=== PATIENT | male | born 1940 | race Caucasian/White ===

== ENCOUNTER 2019-05-27 06:32 | Day surgery (SDC) | payer MEDICARE ==
[~2019-05-27] VITALS: Ht 180.3 cm; Wt 78.0 kg
[2019-05-27 07:10] VITALS: BP 135/70
[2019-05-27] MEDS ORDERED: heparin 1,000 UNITS/NS 500ml 500 ML ICATH ONE (07:10)
[2019-05-27] MEDS ORDERED: normal saline 1000ml 1,000 ML IV PRN (07:10)
[2019-05-27] MEDS ORDERED: LIDOcaine 1%/PF 5ML 10 MG/ML VIAL SQ ONE (07:10)
[2019-05-27] MEDS ORDERED: normal saline 1000ml 1,000 ML IV SCH (07:10)
[2019-05-27] MEDS ORDERED: midazolam 2 mg/2 ml injection IV PRN (07:10)
[2019-05-27] MEDS ORDERED: fentaNYL/PF 50MCG/1 ML 2ML syringe IV PRN (07:10)
[2019-05-27] MEDS ORDERED: SODI650T29 PO (07:37)
[2019-05-27] MEDS ORDERED: ATOR20TA PO (07:37)
[2019-05-27] MEDS ORDERED: APIX5TAB3 PO (07:37)
[2019-05-27] MEDS ORDERED: FOLI0.8T7 PO (07:37)
[2019-05-27] MEDS ORDERED: METO25TA6 PO (07:37)
[2019-05-27] MEDS ORDERED: CALC0.2536 PO (07:37)
[2019-05-27] MEDS ORDERED: PHO667C PO (07:37)
[2019-05-27] MEDS ORDERED: FURO-149 PO (07:37)
[2019-05-27] MEDS ORDERED: AMIO200T61 PO (07:37)
[2019-05-27] MEDS ORDERED: DILT120C94 PO (07:37)
[2019-05-27] MEDS ORDERED: LISI2.5T2 PO (07:37)
[2019-05-27 07:53] LABS: BASOPHILS # (AUTO) 0.2 X10'3 (0-0.2); BASOPHILS % (AUTO) 1.3 % (0-1); EOSINOPHILS # (AUTO) 0.4 X10'3 (0-0.9); EOSINOPHILS % (AUTO) 3.3 % (0-6); HEMATOCRIT 37.4 % (42.0-52.0); HEMOGLOBIN 12.1 g/dl (14.0-17.9); LYMPHOCYTES # (AUTO) 1.8 X10'3 (1.1-4.8); LYMPHOCYTES % (AUTO) 15.4 % (21-51); MEAN CORPUSCULAR HEMOGLOBIN 35.3 PG (27.0-31.0); MEAN CORPUSCULAR HGB CONC 32.3 g/dL (33.0-36.5); MEAN CORPUSCULAR VOLUME 109.3 FL (78-98); MEAN PLATELET VOLUME 7.1 FL (7.4-10.4); NEUTROPHILS # (AUTO) 8.6 X10'3 (1.8-7.7); PLATELET COUNT 230 X10'3 (140-440); RED BLOOD COUNT 3.42 X10'6 (4.70-6.10); RED CELL DISTRIBUTION WIDTH 16.4 % (11.5-14.5); WHITE BLOOD COUNT 11.9 X10'3 (4.5-11.0)
[2019-05-27] MEDS ORDERED: ALB0.5UD IH (08:20)
[2019-05-27] MEDS ORDERED: TIOT18CA3 INH (08:20)
[2019-05-27] MEDS ORDERED: tPA-cathflo 2 MG/2 ml IV flush ONE ×2 (08:46→09:34)
[2019-05-27] MEDS ORDERED: midazolam 2 mg/2 ml injection ONE (08:46)
[2019-05-27] MEDS ORDERED: iohexol 300mg/ml 100ml inj. ONE (08:46)
[2019-05-27] MEDS ORDERED: LIDOcaine 1%/PF 5ML 10 MG/ML VIAL ONE (08:46)
[2019-05-27] MEDS ORDERED: fentaNYL/PF 50MCG/1 ML 2ML syringe ONE (08:46)
[2019-05-27] MEDS ORDERED: heparin 1,000 UNITS/NS 500ml 500 ML ONE (08:47)
[2019-05-27 10:20] VITALS: BP 118/30
[2019-05-27 10:30] VITALS: BP 114/59
[2019-05-27 10:45] VITALS: BP 127/66
[2019-05-27 11:00] VITALS: BP 137/42
[2019-05-27 11:15] VITALS: BP 126/57
== END 2019-05-27 11:45 | disposition home or self-care (01) ==
LOC: SSTAY O 06:32
PROVIDERS: ATTEND Radiology Vascular & Interventional Radiology
DX: T82.868A Thrombosis due to vascular prosthetic devices, implants and grafts, initial encounter (principal); I13.0 Hypertensive heart and chronic kidney disease with heart failure and stage 1 through stage 4 chronic kidney disease, or unspecified chronic kidney disease; N18.9 Chronic kidney disease, unspecified; Z99.2 Dependence on renal dialysis; Z98.890 Other specified postprocedural states; Z79.899 Other long term (current) drug therapy; Z88.0 Allergy status to penicillin; I50.9 Heart failure, unspecified; Y83.2 Surgical operation with anastomosis, bypass or graft as the cause of abnormal reaction of the patient, or of later complication, without mention of misadventure at the time of the procedure; Y92.89 Other specified places as the place of occurrence of the external cause
CPT/HCPCS: 36415; 36905; 85025; 99152; 99153; C1725; C1769; C1894; J1644; J2250; J2997; J3010; J7030; Q9967

== ENCOUNTER 2019-08-26 07:40 | Emergency (ER) | payer MEDICARE, MEDICAID ==
[~2019-08-26] VITALS: Ht 172.7 cm; Wt 79.5 kg
[~2019-08-26 07:40] MED LIST: ALB0.5UD IH; AMIO200T61 PO; APIX5TAB3 PO; ATOR20TA PO; CALC0.2536 PO; DILT120C94 PO; FOLI0.8T7 PO; FURO-149 PO; LISI2.5T2 PO; METO25TA6 PO; PHO667C PO; SODI650T29 PO; TIOT18CA3 INH
--- NOTE | 2019-08-26 09:00 | NUR ---
ATTEMPTED TO TAKE VSS ON PT, PT CURRENTLY HAVING ULTRASOUND AT BEDSIDE.
[2019-08-26] MEDS ORDERED: iohexol 300mg/ml 100ml inj. ONE (09:25)
[2019-08-26] MEDS ORDERED: LIDOcaine 1%/PF 5ML 10 MG/ML VIAL ONE (09:25)
[2019-08-26 10:15] LABS: BASOPHILS # (AUTO) 0.1 X10'3 (0-0.2); BASOPHILS % (AUTO) 0.8 % (0-1); EOSINOPHILS # (AUTO) 0.3 X10'3 (0-0.9); EOSINOPHILS % (AUTO) 1.8 % (0-6); HEMATOCRIT 28.5 % (42.0-52.0); HEMOGLOBIN 9.4 g/dl (14.0-17.9); LYMPHOCYTES # (AUTO) 1.2 X10'3 (1.1-4.8); LYMPHOCYTES % (AUTO) 8.4 % (21-51); MEAN CORPUSCULAR HEMOGLOBIN 35.8 PG (27.0-31.0); MEAN CORPUSCULAR HGB CONC 33.2 g/dL (33.0-36.5); MEAN CORPUSCULAR VOLUME 107.9 FL (78-98); MEAN PLATELET VOLUME 6.5 FL (7.4-10.4); MONOCYTES # (AUTO) 1.2 X10'3 (0-0.9); MONOCYTES % (AUTO) 8.6 % (2-12); NEUTROPHILS # (AUTO) 11.4 X10'3 (1.8-7.7); NEUTROPHILS % (AUTO) 80.4 % (42-75); PLATELET COUNT 296 X10'3 (140-440); RED BLOOD COUNT 2.64 X10'6 (4.70-6.10); RED CELL DISTRIBUTION WIDTH 16.9 % (11.5-14.5); WHITE BLOOD COUNT 14.1 X10'3 (4.5-11.0)
[2019-08-26 10:27] LABS: ALANINE AMINOTRANSFERASE 12 U/L (12-78); ALBUMIN 3.4 G/DL (3.4-5.0); ALKALINE PHOSPHATASE 106 IU/L (46-116); ANION GAP 7 (8-16); ASPARTATE AMINO TRANSFERASE 18 U/L (10-37); BILIRUBIN,TOTAL 0.4 MG/DL (0.1-1.0); BLOOD UREA NITROGEN 27 MG/DL (7-18); BUN/CREATININE RATIO 5.6 (5.4-32.0); CALCIUM 8.8 MG/DL (8.5-10.1); CHLORIDE 99 MMOL/L (99-107); CREATININE 4.79 MG/DL (0.60-1.10); GLUCOSE 84 MG/DL (70-104); POTASSIUM 3.8 MMOL/L (3.5-5.1); SODIUM 140 MMOL/L (135-145); TOTAL CARBON DIOXIDE 34.1 MMOL/L (24-32); TOTAL PROTEIN 6.8 G/DL (6.4-8.2); eGFR 12 ML/MIN
[2019-08-26] MEDS ORDERED: normal saline 1000ml 1,000 ML IV SCH (10:33)
[2019-08-26] MEDS ORDERED: LIDOcaine 1%/PF 5ML 10 MG/ML VIAL SQ ONE (10:35)
[2019-08-26] MEDS ORDERED: fentaNYL/PF 50MCG/1 ML 2ML syringe IV PRN (10:35)
[2019-08-26] MEDS ORDERED: midazolam 2 mg/2 ml injection IV PRN (10:35)
[2019-08-26] MEDS ORDERED: fentaNYL/PF 50MCG/1 ML 2ML syringe ONE ×2 (10:43→10:44)
[2019-08-26] MEDS ORDERED: heparin 1,000 UNITS/NS 500ml 500 ML ONE (10:44)
[2019-08-26] MEDS ORDERED: midazolam 2 mg/2 ml injection ONE (10:44)
--- NOTE | 2019-08-26 11:00 | NUR ---
PT TAKEN TO IR
[2019-08-26 13:36] VITALS: BP 146/75
== END 2019-08-26 13:39 | disposition home or self-care (01) ==
LOC: ER 07:40
DX: S40.022A Contusion of left upper arm, initial encounter (principal); E78.00 Pure hypercholesterolemia, unspecified; I10 Essential (primary) hypertension; J44.9 Chronic obstructive pulmonary disease, unspecified; M19.90 Unspecified osteoarthritis, unspecified site; G89.29 Other chronic pain; Z88.0 Allergy status to penicillin; Z79.899 Other long term (current) drug therapy; Z87.891 Personal history of nicotine dependence; X58.XXXA Exposure to other specified factors, initial encounter; Y93.89 Activity, other specified; Y92.89 Other specified places as the place of occurrence of the external cause; Y99.8 Other external cause status
CPT/HCPCS: 36415; 36902; 80053; 85025; 85610; 93931; 93971; 99285; C1725; C1769; C1894; J1644; J2250; J3010; Q9967

== ENCOUNTER 2020-03-11 10:22 | Day surgery (SDC) | payer MEDICARE, MEDICAID ==
[~2020-03-11] VITALS: Ht 162.6 cm; Wt 81.3 kg
[2020-03-11] MEDS ORDERED: normal saline 1000ml 1,000 ML IV SCH (10:45)
[2020-03-11 11:00] VITALS: BP 120/81
[2020-03-11] MEDS ORDERED: LOSA25TA41 PO (11:02)
[2020-03-11] MEDS ORDERED: OMEP40CA13 PO (11:02)
[2020-03-11] MEDS ORDERED: TERB250T4 PO (11:02)
[2020-03-11] MEDS ORDERED: METO-292 PO (11:02)
[2020-03-11] MEDS ORDERED: heparin 1,000unit/ml 10ml vial 10 ML ONE (13:33)
[2020-03-11] MEDS ORDERED: fentaNYL/PF 50MCG/1 ML 2ML syringe ONE (13:34)
[2020-03-11] MEDS ORDERED: LIDOcaine 1%/PF 5ML 10 MG/ML VIAL ONE (13:34)
[2020-03-11 14:30] VITALS: BP 95/77
[2020-03-11 14:45] VITALS: BP 117/67
[2020-03-11 15:00] VITALS: BP 124/72
== END 2020-03-11 15:20 | disposition home or self-care (01) ==
LOC: SSTAY O 10:22
PROVIDERS: ATTEND Radiology Diagnostic Radiology
DX: T82.868A Thrombosis due to vascular prosthetic devices, implants and grafts, initial encounter (principal); I12.9 Hypertensive chronic kidney disease with stage 1 through stage 4 chronic kidney disease, or unspecified chronic kidney disease; N18.9 Chronic kidney disease, unspecified; J44.9 Chronic obstructive pulmonary disease, unspecified; E78.00 Pure hypercholesterolemia, unspecified; M19.90 Unspecified osteoarthritis, unspecified site; G89.29 Other chronic pain; Z87.01 Personal history of pneumonia (recurrent); Z85.72 Personal history of non-Hodgkin lymphomas; Z98.890 Other specified postprocedural states; Z88.0 Allergy status to penicillin; Z79.899 Other long term (current) drug therapy; Y83.2 Surgical operation with anastomosis, bypass or graft as the cause of abnormal reaction of the patient, or of later complication, without mention of misadventure at the time of the procedure; Y92.89 Other specified places as the place of occurrence of the external cause
CPT/HCPCS: 36558; 76937; 77001; C1750; C1769; C1894; J1644; J3010; A9270

== ENCOUNTER 2020-03-18 08:49 | Day surgery (SDC) | payer MEDICARE, MEDICAID ==
[~2020-03-18] VITALS: Ht 180.3 cm; Wt 81.1 kg
[~2020-03-18 08:49] MED LIST changes: -ALB0.5UD IH; -CALC0.2536 PO; -DILT120C94 PO; -LISI2.5T2 PO; +LOSA25TA41 PO; +METO-292 PO; -METO25TA6 PO; +OMEP40CA13 PO; -SODI650T29 PO; +TERB250T4 PO; -TIOT18CA3 INH
[2020-03-18] MEDS ORDERED: normal saline 1000ml 1,000 ML IV PRN (09:15)
[2020-03-18] MEDS ORDERED: tPA-cathflo 2 MG/2 ml IV flush ONE ×2 (09:27→10:48)
[2020-03-18 09:42] LABS: BASOPHILS # (AUTO) 0.2 X10'3 (0-0.2); BASOPHILS % (AUTO) 1.2 % (0-1); EOSINOPHILS # (AUTO) 0.3 X10'3 (0-0.9); EOSINOPHILS % (AUTO) 1.8 % (0-6); HEMATOCRIT 35.8 % (42.0-52.0); HEMOGLOBIN 11.8 g/dl (14.0-17.9); LYMPHOCYTES # (AUTO) 1.7 X10'3 (1.1-4.8); LYMPHOCYTES % (AUTO) 11.6 % (21-51); MEAN CORPUSCULAR HEMOGLOBIN 35.8 PG (27.0-31.0); MEAN CORPUSCULAR HGB CONC 32.8 g/dL (33.0-36.5); MEAN CORPUSCULAR VOLUME 109.1 FL (78-98); MEAN PLATELET VOLUME 6.6 FL (7.4-10.4); MONOCYTES # (AUTO) 1.3 X10'3 (0-0.9); MONOCYTES % (AUTO) 8.3 % (2-12); NEUTROPHILS # (AUTO) 11.6 X10'3 (1.8-7.7); NEUTROPHILS % (AUTO) 77.1 % (42-75); PLATELET COUNT 268 X10'3 (140-440); RED BLOOD COUNT 3.29 X10'6 (4.70-6.10); RED CELL DISTRIBUTION WIDTH 14.9 % (11.5-14.5); WHITE BLOOD COUNT 15.1 X10'3 (4.5-11.0)
[2020-03-18 09:50] VITALS: BP 119/75
[2020-03-18 09:53] LABS: ANION GAP 15 (8-16); CALCIUM 9.1 MG/DL (8.5-10.1); CHLORIDE 98 MMOL/L (99-107); GLUCOSE 80 MG/DL (70-104); POTASSIUM 4.5 MMOL/L (3.5-5.1); SODIUM 139 MMOL/L (135-145); TOTAL CARBON DIOXIDE 25.7 MMOL/L (24-32)
[2020-03-18 09:55] LABS: PARTIAL THROMBOPLASTIN TIME 31 SECONDS (22-32)
[2020-03-18 10:00] LABS: BLOOD UREA NITROGEN 22 MG/DL (7-18); BUN/CREATININE RATIO 3.5 (5.4-32.0); CREATININE 6.24 MG/DL (0.60-1.10); eGFR 9 ML/MIN
[2020-03-18] MEDS ORDERED: LIDOcaine 1%/PF 5ML 10 MG/ML VIAL ONE (10:01)
[2020-03-18] MEDS ORDERED: fentaNYL/PF 50MCG/1 ML 2ML syringe ONE ×2 (10:01→10:54)
[2020-03-18] MEDS ORDERED: iohexol 300mg/ml 100ml inj. ONE (10:01)
[2020-03-18] MEDS ORDERED: midazolam 2 mg/2 ml injection ONE ×2 (10:01→10:54)
[2020-03-18] MEDS ORDERED: heparin 1,000 UNITS/NS 500ml 500 ML ONE (10:01)
[2020-03-18] MEDS ORDERED: heparin 1,000unit/ml 10ml vial 10 ML ONE (10:45)
[2020-03-18 11:45] VITALS: BP 156/103
[2020-03-18 12:00] VITALS: BP 151/91
[2020-03-18 12:15] VITALS: BP 109/76
[2020-03-18 12:30] VITALS: BP 125/71
== END 2020-03-18 12:55 | disposition home or self-care (01) ==
LOC: SSTAY O 08:49
PROVIDERS: ATTEND Radiology Vascular & Interventional Radiology
DX: T82.868A Thrombosis due to vascular prosthetic devices, implants and grafts, initial encounter (principal); E78.00 Pure hypercholesterolemia, unspecified; I10 Essential (primary) hypertension; J44.9 Chronic obstructive pulmonary disease, unspecified; Z87.01 Personal history of pneumonia (recurrent); M19.90 Unspecified osteoarthritis, unspecified site; G89.29 Other chronic pain; Z85.72 Personal history of non-Hodgkin lymphomas; Z88.0 Allergy status to penicillin; Z79.899 Other long term (current) drug therapy; Z79.01 Long term (current) use of anticoagulants; Y83.2 Surgical operation with anastomosis, bypass or graft as the cause of abnormal reaction of the patient, or of later complication, without mention of misadventure at the time of the procedure; Y92.89 Other specified places as the place of occurrence of the external cause
CPT/HCPCS: 36415; 36905; 76937; 80048; 85025; 85610; 85730; 99152; 99153; C1725; C1769; C1894; J1644; J2250; J2997; J3010; J7030; Q9967

== ENCOUNTER 2021-12-16 07:14 | Inpatient (IN) | payer OTHER, BC, MEDICAID ==
[~2021-12-16] VITALS: Ht 180.3 cm; Wt 81.8 kg
[~2021-12-16 07:14] MED LIST changes: -OMEP40CA13 PO; +OMEP40CA21 PO; -TERB250T4 PO; +TERB250T89 PO
--- NOTE | 2021-12-16 08:28 | NUR ---
Per and pt, he is is on 2L NC 24 hours a day.
--- NOTE | 2021-12-16 08:30 | NUR ---
Dr. Pinon at the bedside to place Tanvir cath. Consent is signed.
[2021-12-16 08:58] LABS: BASOPHILS # (AUTO) 0.1 X10'3 (0-0.2); EOSINOPHILS # (AUTO) 0.4 X10'3 (0-0.9); EOSINOPHILS % (AUTO) 3.3 % (0-6); HEMATOCRIT 33.2 % (42.0-52.0); LYMPHOCYTES # (AUTO) 1.2 X10'3 (1.1-4.8); MEAN CORPUSCULAR HEMOGLOBIN 32.9 PG (27.0-31.0); MEAN CORPUSCULAR VOLUME 99.7 FL (78-98); MEAN PLATELET VOLUME 7.3 FL (7.4-10.4); MONOCYTES # (AUTO) 1.1 X10'3 (0-0.9); MONOCYTES % (AUTO) 9.4 % (2-12); NEUTROPHILS # (AUTO) 8.5 X10'3 (1.8-7.7); NEUTROPHILS % (AUTO) 75.3 % (42-75); PLATELET COUNT 245 X10'3 (140-440); RED BLOOD COUNT 3.33 X10'6 (4.70-6.10); RED CELL DISTRIBUTION WIDTH 14.8 % (11.5-14.5); WHITE BLOOD COUNT 11.3 X10'3 (4.5-11.0)
--- NOTE | 2021-12-16 09:07 | NUR ---
Dr. Pinon is now attempting to insert Tanvir in R groin.
[2021-12-16 09:17] LABS: ALBUMIN/GLOBULIN RATIO 0.8 (1.1-1.5); ALKALINE PHOSPHATASE 137 IU/L (46-116); ANION GAP 20 (8-16); ASPARTATE AMINO TRANSFERASE 8 U/L (10-37); BILIRUBIN,TOTAL 1.7 MG/DL (0.1-1.0); BLOOD UREA NITROGEN 82 MG/DL (7-18); BUN/CREATININE RATIO 6.8 (5.4-32.0); CHLORIDE 97 MMOL/L (99-107); CREATININE 12.12 MG/DL (0.60-1.10); GLUCOSE 95 MG/DL (70-104); SODIUM 139 MMOL/L (135-145); TOTAL CARBON DIOXIDE 21.9 MMOL/L (24-32); TOTAL PROTEIN 6.8 G/DL (6.4-8.2); eGFR 4 ML/MIN
[2021-12-16] MEDS ORDERED: acetaminophen 325mg tablet PO PRN ×2 (09:20)
[2021-12-16] MEDS ORDERED: ondansetron/PF 4mg/2ml inj IV PRN (09:20)
[2021-12-16] MEDS ORDERED: magnesium hydroxide 30ml (MOM) UD suspension PO PRN (09:20)
[2021-12-16] MEDS ORDERED: mag hydrox/Alum hydrox/simeth 30ml oral suspension PO PRN (09:20)
[2021-12-16] MEDS ORDERED: morphine 2 MG/ML inj. syringe IV PRN ×2 (09:20)
[2021-12-16] MEDS ORDERED: HYDROcodone/acetaminophen 5mg/325mg tablet PO PRN (09:20)
[2021-12-16 09:27] LABS: ALANINE AMINOTRANSFERASE 7 U/L (12-78)
[2021-12-16] MEDS ORDERED: albumin (human) 25% 100ml IV 100 ML IV PRN (09:30)
--- NOTE | 2021-12-16 09:30 | NUR ---
Per Dr. Pinon, it is ok for pt to not have a peripheral IV.
--- NOTE | 2021-12-16 09:47 | NUR ---
Елена Ramey cath placed by Dr. Pinon. Area cleaned and sterile dressing was applied.
[2021-12-16] MEDS ORDERED: heparin 1,000 units/ml 10ml inj HE ONE ×2 (10:25)
--- NOTE | 2021-12-16 10:32 | NUR ---
Report given to RAMOS Rizo in PCU.
[2021-12-16 10:45] VITALS: BP 135/63
[2021-12-16 15:00] VITALS: BP 114/59
[2021-12-16 18:00] VITALS: BP 114/59
[2021-12-16] MEDS: docusate sod 100mg capsule PO SCH (19:28)
[2021-12-16 22:00] VITALS: BP 125/62
[2021-12-17 02:00] VITALS: BP 139/68
[2021-12-17 06:00] VITALS: BP 131/80
--- NOTE | 2021-12-17 06:43 | NUR ---
Patient in room PCU 3022. I have received report from Viky BEASLEY and had the opportunity to ask questions and assume patient care.
[2021-12-17 07:00] VITALS: BP 131/80
[2021-12-17] MEDS: docusate sod 100mg capsule PO SCH ×2 (07:41→19:56)
[2021-12-17 07:43] LABS: BASOPHILS # (AUTO) 0.1 X10'3 (0-0.2); BASOPHILS % (AUTO) 0.8 % (0-1); EOSINOPHILS # (AUTO) 0.1 X10'3 (0-0.9); EOSINOPHILS % (AUTO) 1.2 % (0-6); HEMATOCRIT 30.7 % (42.0-52.0); HEMOGLOBIN 10.1 g/dl (14.0-17.9); LYMPHOCYTES # (AUTO) 1.1 X10'3 (1.1-4.8); LYMPHOCYTES % (AUTO) 8.6 % (21-51); MEAN CORPUSCULAR HEMOGLOBIN 32.9 PG (27.0-31.0); MEAN CORPUSCULAR HGB CONC 32.8 g/dL (33.0-36.5); MEAN CORPUSCULAR VOLUME 100.3 FL (78-98); MEAN PLATELET VOLUME 7.5 FL (7.4-10.4); MONOCYTES # (AUTO) 1.2 X10'3 (0-0.9); MONOCYTES % (AUTO) 9.9 % (2-12); NEUTROPHILS # (AUTO) 9.8 X10'3 (1.8-7.7); NEUTROPHILS % (AUTO) 79.5 % (42-75); PLATELET COUNT 226 X10'3 (140-440); RED BLOOD COUNT 3.06 X10'6 (4.70-6.10); RED CELL DISTRIBUTION WIDTH 14.5 % (11.5-14.5); WHITE BLOOD COUNT 12.4 X10'3 (4.5-11.0)
--- NOTE | 2021-12-17 07:50 | NUR ---
Problems reprioritized. Patient report given, questions answered & plan of care reviewed with Lianna BEASLEY.
--- NOTE | 2021-12-17 07:50 | NUR ---
Patient in room PCU 3022. I have received report from Taty BEASLEY and had the opportunity to ask questions and assume patient care.
[2021-12-17 07:52] LABS: ALBUMIN 2.6 G/DL (3.4-5.0); ANION GAP 15 (8-16); BLOOD UREA NITROGEN 43 MG/DL (7-18); BUN/CREATININE RATIO 5.5 (5.4-32.0); CALCIUM 8.9 MG/DL (8.5-10.1); CHLORIDE 101 MMOL/L (99-107); CREATININE 7.81 MG/DL (0.60-1.10); GLUCOSE 95 MG/DL (70-104); POTASSIUM 4.1 MMOL/L (3.5-5.1); SODIUM 139 MMOL/L (135-145); TOTAL CARBON DIOXIDE 23.4 MMOL/L (24-32); eGFR 7 ML/MIN
[2021-12-17] MEDS: guaiFENesin ER 600mg tablet PO SCH ×2 (10:15→19:56)
[2021-12-17 11:00] VITALS: BP 109/58
--- NOTE | 2021-12-17 14:40 | NUR ---
PAGER ID: [phone] MESSAGE: [id number] - Ap [place]: Patients states hes been having a lot of rectal bleeding and she told ER doctor, wants to know if any tests are being run? Also curious about most recent chest x ray. She is in room. [facility] [id number]
--- NOTE | 2021-12-17 14:41 | NUR ---
is in room and states patient has been having large amounts of rectal bleeding onto a pad he wears in his underwear. So much so that it consistently fills the pad and runs onto the patients pants. She said this has been ongoing for awhile and [facility]. She states she mentioned it to the ER doctor yesterday and wanted to know if they were looking into it. I could not find any information on this in the notes or in the patient admit history for this visit. I paged MD with wifes questions in hopes he can answer her questions.
--- NOTE | 2021-12-17 14:49 | NUR ---
Dr Cuellar called back. Stated until he sees blood there isnt anything he can do.
[2021-12-17 15:37] VITALS: BP 112/51
[2021-12-17] MEDS ORDERED: albuterol 2.5 MG/3 ML nebule ONE (15:58)
[2021-12-17] MEDS: albuterol 2.5 MG/3 ML nebule NEB SCH (19:37)
[2021-12-17] MEDS: amiodarone 200mg tablet PO SCH (19:56)
[2021-12-17] MEDS: furosemide 40mg tablet PO SCH (19:56)
[2021-12-18 02:00] VITALS: BP 120/62
[2021-12-18 06:55] LABS: BASOPHILS # (AUTO) 0.1 X10'3 (0-0.2); BASOPHILS % (AUTO) 0.7 % (0-1); EOSINOPHILS # (AUTO) 0.2 X10'3 (0-0.9); EOSINOPHILS % (AUTO) 1.5 % (0-6); HEMATOCRIT 29.8 % (42.0-52.0); LYMPHOCYTES # (AUTO) 1.1 X10'3 (1.1-4.8); LYMPHOCYTES % (AUTO) 10.1 % (21-51); MEAN CORPUSCULAR HEMOGLOBIN 33.1 PG (27.0-31.0); MEAN CORPUSCULAR HGB CONC 33.5 g/dL (33.0-36.5); MEAN PLATELET VOLUME 7.3 FL (7.4-10.4); MONOCYTES # (AUTO) 1.2 X10'3 (0-0.9); MONOCYTES % (AUTO) 10.9 % (2-12); NEUTROPHILS # (AUTO) 8.1 X10'3 (1.8-7.7); NEUTROPHILS % (AUTO) 76.8 % (42-75); PLATELET COUNT 240 X10'3 (140-440); RED BLOOD COUNT 3.01 X10'6 (4.70-6.10); RED CELL DISTRIBUTION WIDTH 14.2 % (11.5-14.5); WHITE BLOOD COUNT 10.5 X10'3 (4.5-11.0)
[2021-12-18 07:00] VITALS: BP 120/62
[2021-12-18 07:04] LABS: ALBUMIN 2.6 G/DL (3.4-5.0); ANION GAP 16 (8-16); BLOOD UREA NITROGEN 59 MG/DL (7-18); BUN/CREATININE RATIO 6.1 (5.4-32.0); CHLORIDE 99 MMOL/L (99-107); CREATININE 9.64 MG/DL (0.60-1.10); GLUCOSE 97 MG/DL (70-104); SODIUM 138 MMOL/L (135-145); TOTAL CARBON DIOXIDE 22.9 MMOL/L (24-32); eGFR 5 ML/MIN
[2021-12-18] MEDS: albuterol 2.5 MG/3 ML nebule NEB SCH ×4 (07:16→19:00)
[2021-12-18] MEDS ORDERED: EPOETIN ALFA-EPBX 20,000 UNIT/ML 1 ML MDV IV ONE (07:20)
[2021-12-18] MEDS ORDERED: albumin (human) 25% 100ml IV 100 ML IV PRN (07:20)
[2021-12-18] MEDS ORDERED: heparin 1,000 units/ml 10ml inj HE ONE ×2 (07:25)
[2021-12-18] MEDS: pantoprazole 40mg Tablet.DR PO SCH ×3 (07:49→09:25)
[2021-12-18] MEDS ORDERED: folic acid/vitamin B complex w/vitamin C 0.8mg tablet PO SCH (08:00)
[2021-12-18] MEDS: amiodarone 200mg tablet PO SCH (08:00)
[2021-12-18] MEDS: furosemide 40mg tablet PO SCH (08:00)
[2021-12-18] MEDS ORDERED: losartan 25mg tablet PO SCH (08:00)
[2021-12-18] MEDS ORDERED: pantoprazole 40mg Tablet.DR PO SCH (08:00)
--- NOTE | 2021-12-18 09:00 | NUR ---
Some morning meds held for Addendum: 12/18/21 at 1116 by Lianna Emanuel RN Dialysis.
[2021-12-18] MEDS: guaiFENesin ER 600mg tablet PO SCH (09:22)
[2021-12-18] MEDS: docusate sod 100mg capsule PO SCH (09:23)
--- NOTE | 2021-12-18 10:02 | NUR ---
ASSISTING RN WITH MED REC, CALLED AND LEFT A MESSAGE FOR OLIMPIA HALL, , TO CONFIRM RUPESH AND PIPER,
[2021-12-18 11:00] VITALS: BP 140/72
[2021-12-18 15:00] VITALS: BP 126/60
[2021-12-18 18:00] VITALS: BP 113/72
--- NOTE | 2021-12-18 18:30 | NUR ---
Patient in room PCU 3022. I have received report from Lianna and had the opportunity to ask questions and assume patient care. Paperwork for discharge was completed by day shift and had been signed by patient. Patient's IV access removed. VS WNL and patient stable, on 2L NC. had portable O2 at bedside. MONICA Cortés wheeled patient down to car via WC on 2L NC. No distress noted.
== END 2021-12-18 19:10 | disposition home or self-care (01) | DRG 314 ==
LOC: ER 07:16 → PCU 3S 09:21
PROVIDERS: ADMIT Internal Medicine; ATTEND Internal Medicine
PROC: 06HY33Z Insertion of Infusion Device into Lower Vein, Percutaneous Approach (ICD-10-PCS; principal; 2021-12-16)
PROC: 5A1D70Z Performance of Urinary Filtration, Intermittent, Less than 6 Hours Per Day (ICD-10-PCS; 2021-12-16)
PROC: 5A1D70Z Performance of Urinary Filtration, Intermittent, Less than 6 Hours Per Day (ICD-10-PCS; 2021-12-18)
DX: T82.510A Breakdown (mechanical) of surgically created arteriovenous fistula, initial encounter (principal); N18.6 End stage renal disease; I13.2 Hypertensive heart and chronic kidney disease with heart failure and with stage 5 chronic kidney disease, or end stage renal disease; J96.11 Chronic respiratory failure with hypoxia; I50.20 Unspecified systolic (congestive) heart failure; J44.9 Chronic obstructive pulmonary disease, unspecified; I48.0 Paroxysmal atrial fibrillation; D64.9 Anemia, unspecified; G89.29 Other chronic pain; M19.90 Unspecified osteoarthritis, unspecified site; M54.9 Dorsalgia, unspecified; E78.00 Pure hypercholesterolemia, unspecified; E78.5 Hyperlipidemia, unspecified; Y71.2 Prosthetic and other implants, materials and accessory cardiovascular devices associated with adverse incidents; Y92.89 Other specified places as the place of occurrence of the external cause; Z79.01 Long term (current) use of anticoagulants; Z85.72 Personal history of non-Hodgkin lymphomas; Z99.2 Dependence on renal dialysis; Z92.21 Personal history of antineoplastic chemotherapy; Z79.899 Other long term (current) drug therapy; Z88.0 Allergy status to penicillin; Z92.3 Personal history of irradiation; Z87.891 Personal history of nicotine dependence
CPT/HCPCS: 36415; 71045; 80048; 80053; 85025; 87081; 87502; 87503; 94640; 94667; 94668; 94760; 99285; G0257; G0378; J1644; Q4081

== ENCOUNTER 2022-01-01 12:17 | Day surgery (SDC) | payer OTHER ==
[~2022-01-01] VITALS: Ht 180.3 cm; Wt 85.2 kg
[~2022-01-01 12:17] MED LIST changes: +ALBU8HFA PO; -APIX5TAB3 PO; -ATOR20TA PO; +FLUT1BLS14; -FOLI0.8T7 PO; +IPRA3AMP31 NEB; +LACTC PO; -METO-292 PO; +METO200T49 PO; -PHO667C PO; -TERB250T89 PO
[2022-01-01 12:30] VITALS: BP 127/74
[2022-01-01] MEDS ORDERED: normal saline 1000ml 1,000 ML IV SCH (12:35)
[2022-01-01 12:37] VITALS: BP 127/74
[2022-01-01] MEDS ORDERED: heparin 1,000unit/ml 10ml vial 10 ML ONE (13:03)
[2022-01-01] MEDS ORDERED: LIDOcaine 1% W/epiNEPHrine 1:100,000 20ml vial ONE (13:03)
[2022-01-01] MEDS ORDERED: midazolam 1 mg/ML 2ml injection ONE (13:03)
[2022-01-01] MEDS ORDERED: fentaNYL/PF 50MCG/1 ML 2ML syringe ONE (13:03)
[2022-01-01 14:21] VITALS: BP 142/66
[2022-01-01 14:30] VITALS: BP 149/59
[2022-01-01 14:45] VITALS: BP 140/81
== END 2022-01-01 15:10 | disposition home or self-care (01) ==
LOC: SSTAY O 12:17
PROVIDERS: ATTEND Preventive Medicine Aerospace Medicine
DX: T82.590A Other mechanical complication of surgically created arteriovenous fistula, initial encounter (principal); I12.0 Hypertensive chronic kidney disease with stage 5 chronic kidney disease or end stage renal disease; N18.6 End stage renal disease; Z88.8 Allergy status to other drugs, medicaments and biological substances; Z88.0 Allergy status to penicillin; Y83.2 Surgical operation with anastomosis, bypass or graft as the cause of abnormal reaction of the patient, or of later complication, without mention of misadventure at the time of the procedure; Y92.89 Other specified places as the place of occurrence of the external cause
CPT/HCPCS: 36558; 76937; 77001; C1750; C1769; C1894; J1644; J3010; J3490; J7030; A4615; A9270; J2250

== ENCOUNTER 2022-02-12 10:13 | Inpatient (IN) | payer OTHER, BC, MEDICAID ==
[~2022-02-12] VITALS: Ht 180.3 cm; Wt 81.0 kg
[2022-02-12 11:13] LABS: BASOPHILS # (AUTO) 0.1 X10'3 (0-0.2); BASOPHILS % (AUTO) 1.1 % (0-1); EOSINOPHILS # (AUTO) 0.3 X10'3 (0-0.9); EOSINOPHILS % (AUTO) 2.6 % (0-6); HEMATOCRIT 36.8 % (42.0-52.0); HEMOGLOBIN 12.1 g/dl (14.0-17.9); LYMPHOCYTES # (AUTO) 0.9 X10'3 (1.1-4.8); LYMPHOCYTES % (AUTO) 6.3 % (21-51); MEAN CORPUSCULAR HGB CONC 32.9 g/dL (33.0-36.5); MEAN CORPUSCULAR VOLUME 103.5 FL (78-98); MEAN PLATELET VOLUME 7.5 FL (7.4-10.4); MONOCYTES # (AUTO) 0.8 X10'3 (0-0.9); NEUTROPHILS # (AUTO) 11.4 X10'3 (1.8-7.7); PLATELET COUNT 182 X10'3 (140-440); RED BLOOD COUNT 3.55 X10'6 (4.70-6.10); RED CELL DISTRIBUTION WIDTH 16.9 % (11.5-14.5); WHITE BLOOD COUNT 13.6 X10'3 (4.5-11.0)
[2022-02-12 11:20] LABS: APTT 28 SECONDS (22-32)
[2022-02-12 11:21] LABS: ALANINE AMINOTRANSFERASE 11 U/L (12-78); ALBUMIN 3.1 G/DL (3.4-5.0); ALBUMIN/GLOBULIN RATIO 0.8 (1.1-1.5); ALKALINE PHOSPHATASE 153 IU/L (46-116); ANION GAP 12 (8-16); ASPARTATE AMINO TRANSFERASE 13 U/L (10-37); BILIRUBIN,TOTAL 0.9 MG/DL (0.1-1.0); BLOOD UREA NITROGEN 37 MG/DL (7-18); BUN/CREATININE RATIO 4.1 (5.4-32.0); CALCIUM 8.7 MG/DL (8.5-10.1); CHLORIDE 100 MMOL/L (99-107); CREATININE 9.12 MG/DL (0.60-1.10); GLUCOSE 99 MG/DL (70-104); POTASSIUM 4.3 MMOL/L (3.5-5.1); SODIUM 141 MMOL/L (135-145); TOTAL CARBON DIOXIDE 28.9 MMOL/L (24-32); TOTAL PROTEIN 6.8 G/DL (6.4-8.2); eGFR 6 ML/MIN
[2022-02-12] MEDS ORDERED: iohexol 350MG/ML 100ml bottle IV ONE (12:59)
[2022-02-12] MEDS ORDERED: acetaminophen 325mg tablet PO PRN (14:35)
[2022-02-12] MEDS ORDERED: mag hydrox/Alum hydrox/simeth 30ml oral suspension PO PRN (14:35)
[2022-02-12] MEDS ORDERED: morphine 2 MG/ML inj. syringe IV PRN ×2 (14:35)
[2022-02-12] MEDS ORDERED: magnesium hydroxide 30ml (MOM) UD suspension PO PRN (14:35)
[2022-02-12] MEDS ORDERED: ondansetron/PF 4mg/2ml inj IV PRN (14:35)
[2022-02-12 15:10] LABS: CHOL/HDL RATIO 2.5 (0.00-4.99); CHOLESTEROL 130 MG/DL (0-200); HDL CHOLESTEROL 51 MG/DL (35-60); LDL CHOLESTEROL 62 MG/DL (50-100); TRIGLYCERIDES 105 MG/DL (20-135)
[2022-02-12] MEDS ORDERED: IPRA3AMP31 IH (15:36)
[2022-02-12] MEDS ORDERED: ACET200V24 NEB (15:36)
[2022-02-12] MEDS ORDERED: BISA-155 PO (15:38)
[2022-02-12] MEDS ORDERED: ALBU8.5H17 INH (15:47)
[2022-02-12] MEDS ORDERED: ipratropium/albuterol 3ml nebule NEB PRN (19:15)
--- NOTE | 2022-02-12 19:28 | NUR ---
Pts sats at 84. Pt placed on a non-rebreather. Paged hospitalist for respiratory tx.
--- NOTE | 2022-02-12 19:44 | NUR ---
Per DR. Amezquita place order for a Bi-pap.
--- NOTE | 2022-02-12 19:50 | NUR ---
Paged Dr. Ledesma to upgrade pt status to TCU.
--- NOTE | 2022-02-12 19:54 | NUR ---
Pt placed on bipap at 1953.
[2022-02-12 20:29] LABS: ABG BASE EXCESS 0.3 mmol/L (-2.0-2.0); ABG HCO3 27.4 mmol/L (22.0-26.0); ABG OXYGEN SATURATION 93.2 % (94-97); ABG PCO2 (T) 53.6 mmHg (35.0-48.0); ALLEN'S TEST Modified; FCOHb 0.7 % (0.0-3.9); FMetHb 0.2 % (0.0-1.5); FO2Hb 92.4 % (94-97); PATIENT TEMPERATURE 36.5; RESPIRATORY RATE 10 b/min; TOTAL HEMOGLOBIN 13.3 G/dl (14.0-18.0)
[2022-02-13] VITALS (7 sets, daily range): BP systolic 86–127; BP diastolic 45–63
--- NOTE | 2022-02-13 00:37 | NUR ---
Report called to Syl at [phone] [facility].
[2022-02-13] MEDS: docusate sod 100mg capsule PO SCH ×3 (01:30→20:44)
[2022-02-13] MEDS ORDERED: heparin 1,000unit/ml 10ml vial 10 ML IV ONE (04:15)
[2022-02-13] MEDS ORDERED: heparin 1,000 units/ml 10ml inj IV ONE (04:15)
[2022-02-13] MEDS ORDERED: albumin (human) 25% 100ml IV 100 ML IV PRN (04:15)
[2022-02-13] MEDS ORDERED: heparin 1,000 units/ml 10ml inj HE ONE ×2 (04:20)
[2022-02-13 06:12] LABS: BASOPHILS # (AUTO) 0.1 X10'3 (0-0.2); BASOPHILS % (AUTO) 0.2 % (0-1); EOSINOPHILS % (AUTO) 0 % (0-6); HEMATOCRIT 36.7 % (42.0-52.0); HEMOGLOBIN 11.6 g/dl (14.0-17.9); LYMPHOCYTES # (AUTO) 0.5 X10'3 (1.1-4.8); LYMPHOCYTES % (AUTO) 2.2 % (21-51); MEAN CORPUSCULAR HEMOGLOBIN 33.8 PG (27.0-31.0); MEAN CORPUSCULAR HGB CONC 31.7 g/dL (33.0-36.5); MEAN CORPUSCULAR VOLUME 106.6 FL (78-98); MEAN PLATELET VOLUME 7.4 FL (7.4-10.4); MONOCYTES # (AUTO) 1.3 X10'3 (0-0.9); MONOCYTES % (AUTO) 5.6 % (2-12); PLATELET COUNT 161 X10'3 (140-440); RED BLOOD COUNT 3.44 X10'6 (4.70-6.10); RED CELL DISTRIBUTION WIDTH 17.4 % (11.5-14.5); WHITE BLOOD COUNT 23.9 X10'3 (4.5-11.0)
[2022-02-13 06:27] LABS: ALBUMIN 2.8 G/DL (3.4-5.0); ANION GAP 17 (8-16); BLOOD UREA NITROGEN 49 MG/DL (7-18); BUN/CREATININE RATIO 4.6 (5.4-32.0); CALCIUM 8.5 MG/DL (8.5-10.1); CHLORIDE 97 MMOL/L (99-107); CREATININE 10.55 MG/DL (0.60-1.10); GLUCOSE 109 MG/DL (70-104); POTASSIUM 4.6 MMOL/L (3.5-5.1); SODIUM 137 MMOL/L (135-145); TOTAL CARBON DIOXIDE 23.2 MMOL/L (24-32); eGFR 5 ML/MIN
[2022-02-13] MEDS ORDERED: vancomycin/NS 1 GM ADD-VANTAGE 250 ML X 1 DOSE IV ONE (06:30)
--- NOTE | 2022-02-13 06:49 | NUR ---
Patient in room PCU 3015. I have received report from RAMOS Streeter and had the opportunity to ask questions and assume patient care.
[2022-02-13] MEDS: aspirin 325mg tablet, delayed-release (Ecotrin) PO SCH (07:17)
--- NOTE | 2022-02-13 08:04 | NUR ---
Dr. Cuellar in to see patient and aware patient's BP is 95/50 HR 87. No new orders. Patient also currently on 10LNC. Addendum: 02/13/22 at 0837 by Pete Marrero RN Patient on 10L high flow NC.
[2022-02-13] MEDS ORDERED: VANCOMYCIN 750MG IV in NS 250 ML IV ONE (08:40)
[2022-02-13] MEDS ORDERED: vancomycin/NS 1 GM ADD-VANTAGE 250 ML IV PRN (08:55)
[2022-02-13] MEDS: levoFLOXACIN-Levaquin 250mg/D5 50 ML IV SCH (09:49)
--- NOTE | 2022-02-13 10:59 | NUR ---
Awaiting for 750mg Vanco however patient now getting dialysis. Spoke to [facility] Pharmacists and ok to hang 750mg dose of vanco after dialysis completed.
--- NOTE | 2022-02-13 11:36 | NUR ---
PAGER ID: [phone] MESSAGE: [id number]- Jose Thorpe- unable to do MRI today per geological technician patient on too much O2. Pt will need to be on lower rate and able to lay down flat. Thank you- Pete [phone]
--- NOTE | 2022-02-13 15:31 | NUR ---
Patient BP has been low in the high 80's and low 90's. Per campaign assistant Sara patient Dr Pinon aware and pt was given albumin. No new orders. Addendum: 02/13/22 at 1535 by Pete Marrero RN Patient was also given 1100ml for dialysis and Dr. Pinon did not want further fluids at this time per Pricila christiansen RN. Will continue to monitor.
--- NOTE | 2022-02-13 15:43 | NUR ---
PAGER ID: [phone] MESSAGE: [id number]- Jose Thorpe- pt bp is 86/41 hr 80. universal branch consultant gave patient albumin and 1100ml for dialysis. Pt sounding wet. Dr Pinon did not want more fluids given.- [facility] [id number]
[2022-02-13] MEDS: aztreonam inj. 1,000 MG in normal saline 100ml IV soln 100 ML IV SCH (17:00)
--- NOTE | 2022-02-13 18:30 | NUR ---
Patient in room PCU 3015. I have received report from Pete BEASLEY and had the opportunity to ask questions and assume patient care.
--- NOTE | 2022-02-13 18:40 | NUR ---
Problems reprioritized. Patient report given, questions answered & plan of care reviewed with RAMOS Montoya.
[2022-02-13] MEDS: ipratropium/albuterol 3ml nebule IH SCH (20:14)
[2022-02-14 02:00] VITALS: BP 102/52
[2022-02-14] MEDS: VANCOMYCIN LEVEL IV SCH (03:00)
[2022-02-14 03:31] LABS: BASOPHILS # (AUTO) 0.1 X10'3 (0-0.2); BASOPHILS % (AUTO) 0.5 % (0-1); EOSINOPHILS # (AUTO) 0.6 X10'3 (0-0.9); EOSINOPHILS % (AUTO) 3.9 % (0-6); HEMATOCRIT 28.7 % (42.0-52.0); HEMOGLOBIN 9.5 g/dl (14.0-17.9); LYMPHOCYTES # (AUTO) 1.1 X10'3 (1.1-4.8); LYMPHOCYTES % (AUTO) 6.7 % (21-51); MEAN CORPUSCULAR HGB CONC 32.9 g/dL (33.0-36.5); MEAN CORPUSCULAR VOLUME 103.4 FL (78-98); MEAN PLATELET VOLUME 7.4 FL (7.4-10.4); MONOCYTES # (AUTO) 1.1 X10'3 (0-0.9); MONOCYTES % (AUTO) 6.9 % (2-12); NEUTROPHILS # (AUTO) 12.9 X10'3 (1.8-7.7); PLATELET COUNT 140 X10'3 (140-440); RED BLOOD COUNT 2.78 X10'6 (4.70-6.10); RED CELL DISTRIBUTION WIDTH 16.4 % (11.5-14.5); WHITE BLOOD COUNT 15.7 X10'3 (4.5-11.0)
[2022-02-14 03:47] LABS: ALBUMIN 2.6 G/DL (3.4-5.0); ANION GAP 9 (8-16); BLOOD UREA NITROGEN 25 MG/DL (7-18); BUN/CREATININE RATIO 4.1 (5.4-32.0); CALCIUM 8.4 MG/DL (8.5-10.1); CHLORIDE 101 MMOL/L (99-107); CREATININE 6.06 MG/DL (0.60-1.10); GLUCOSE 91 MG/DL (70-104); POTASSIUM 4.1 MMOL/L (3.5-5.1); SODIUM 138 MMOL/L (135-145); TOTAL CARBON DIOXIDE 28.2 MMOL/L (24-32); VANCOMYCIN,RANDOM 18.7 UG/ML; eGFR 9 ML/MIN
[2022-02-14] MEDS: HYDROcodone/acetaminophen 5mg/325mg tablet PO PRN ×2 (04:30→23:17)
--- NOTE | 2022-02-14 06:30 | NUR ---
Problems reprioritized. Patient report given, questions answered & plan of care reviewed with Pete BEASLEY.
--- NOTE | 2022-02-14 06:34 | NUR ---
Patient in room PCU 3015. I have received report from RAMOS Montoya and had the opportunity to ask questions and assume patient care.
[2022-02-14 06:52] VITALS: BP 110/57
[2022-02-14] MEDS ORDERED: lactobacillus acidophilus cap PO SCH (08:00)
--- NOTE | 2022-02-14 08:15 | NUR ---
Dr. Cuellar in to see patient and aware patient with moist cough and gurgling. Per Dr. Cuellar this is not abnormal for patient and "he does sound wet from time time this is usual for him." Will continue to monitor.
[2022-02-14] MEDS: aspirin 325mg tablet, delayed-release (Ecotrin) PO SCH (08:59)
[2022-02-14] MEDS: pantoprazole 40mg Tablet.DR PO SCH (08:59)
[2022-02-14] MEDS: amiodarone 200mg tablet PO SCH (08:59)
[2022-02-14] MEDS: aztreonam inj. 1,000 MG in normal saline 100ml IV soln 100 ML IV SCH (08:59)
[2022-02-14] MEDS: docusate sod 100mg capsule PO SCH ×2 (08:59→20:37)
--- NOTE | 2022-02-14 09:26 | NUR ---
Patient IV infiltrated. PICC RN requested to assist in placing a new PIV.
--- NOTE | 2022-02-14 10:05 | NUR ---
Per Dr. Zi sahni to use forearm for PIV if unable to insert below wrist. PICC RN aware. PICC RN able to place PIV in left hand. IV abx continued.
[2022-02-14] MEDS: levoFLOXACIN-Levaquin 250mg/D5 50 ML IV SCH (10:45)
[2022-02-14 12:52] VITALS: BP 102/62
[2022-02-14 15:59] VITALS: BP 123/62
[2022-02-14] MEDS ORDERED: levoFLOXACIN-Levaquin 250mg/D5 50 ML IV SCH ×4 (18:08→18:34)
--- NOTE | 2022-02-14 18:46 | NUR ---
Problems reprioritized. Patient report given, questions answered & plan of care reviewed with RAMOS Umana.
[2022-02-14 19:15] VITALS: BP 104/56
[2022-02-14] MEDS: ipratropium/albuterol 3ml nebule IH SCH (19:48)
[2022-02-14 22:00] VITALS: BP_SYST 103; BP_SYST 113; BP_DIAS 54; BP_DIAS 73
[2022-02-15] VITALS (7 sets, daily range): BP systolic 96–134; BP diastolic 54–71
[2022-02-15] MEDS: VANCOMYCIN LEVEL IV SCH (03:00)
--- NOTE | 2022-02-15 05:37 | NUR ---
PT HAS NOT BEEN OOB AND HAS NOT RECEIVED PT THE LAST COUPLE OF DAYS
--- NOTE | 2022-02-15 06:38 | NUR ---
Problems reprioritized. Patient report given, questions answered & plan of care reviewed with CATHY. Addendum: 02/15/22 at 0639 by Raheem Louise RN Amended: Links added.
--- NOTE | 2022-02-15 06:42 | NUR ---
Patient in room PCU 3015. I have received report from RAMOS Umana and had the opportunity to ask questions and assume patient care.
[2022-02-15 07:18] LABS: BASOPHILS % (AUTO) 0.4 % (0-1); EOSINOPHILS # (AUTO) 0.5 X10'3 (0-0.9); EOSINOPHILS % (AUTO) 4.9 % (0-6); HEMATOCRIT 30.3 % (42.0-52.0); HEMOGLOBIN 10.1 g/dl (14.0-17.9); LYMPHOCYTES # (AUTO) 1.1 X10'3 (1.1-4.8); LYMPHOCYTES % (AUTO) 9.9 % (21-51); MEAN CORPUSCULAR HEMOGLOBIN 34.3 PG (27.0-31.0); MEAN CORPUSCULAR HGB CONC 33.3 g/dL (33.0-36.5); MEAN CORPUSCULAR VOLUME 103.1 FL (78-98); MEAN PLATELET VOLUME 7.4 FL (7.4-10.4); MONOCYTES % (AUTO) 9.7 % (2-12); NEUTROPHILS # (AUTO) 8.1 X10'3 (1.8-7.7); NEUTROPHILS % (AUTO) 75.1 % (42-75); PLATELET COUNT 154 X10'3 (140-440); RED BLOOD COUNT 2.94 X10'6 (4.70-6.10); WHITE BLOOD COUNT 10.7 X10'3 (4.5-11.0)
[2022-02-15] MEDS: amiodarone 200mg tablet PO SCH (07:32)
[2022-02-15] MEDS: aztreonam inj. 1,000 MG in normal saline 100ml IV soln 100 ML IV SCH (07:32)
[2022-02-15] MEDS: aspirin 325mg tablet, delayed-release (Ecotrin) PO SCH (07:32)
[2022-02-15] MEDS: docusate sod 100mg capsule PO SCH ×2 (07:32→19:47)
[2022-02-15] MEDS: pantoprazole 40mg Tablet.DR PO SCH (07:32)
[2022-02-15] MEDS: lactobacillus rhamnosus 10,000 MMU CELLS/CAPSULE PO SCH (07:32)
[2022-02-15] MEDS: ipratropium/albuterol 3ml nebule IH SCH ×4 (07:41→20:16)
[2022-02-15 07:58] LABS: ALBUMIN 2.7 G/DL (3.4-5.0); ANION GAP 15 (8-16); BLOOD UREA NITROGEN 38 MG/DL (7-18); BUN/CREATININE RATIO 4.5 (5.4-32.0); CALCIUM 8.7 MG/DL (8.5-10.1); CHLORIDE 100 MMOL/L (99-107); CREATININE 8.38 MG/DL (0.60-1.10); GLUCOSE 86 MG/DL (70-104); POTASSIUM 4.4 MMOL/L (3.5-5.1); SODIUM 141 MMOL/L (135-145); TOTAL CARBON DIOXIDE 25.8 MMOL/L (24-32); VANCOMYCIN,RANDOM 15.1 UG/ML; eGFR 6 ML/MIN
[2022-02-15] MEDS ORDERED: heparin 1,000unit/ml 10ml vial 10 ML IV ONE (08:00)
[2022-02-15] MEDS ORDERED: albumin (human) 25% 100ml IV 100 ML IV PRN (08:00)
[2022-02-15] MEDS ORDERED: heparin 1,000 units/ml 10ml inj HE ONE ×2 (08:00)
[2022-02-15] MEDS ORDERED: EPOETIN ALFA-EPBX 20,000 UNIT/ML 1 ML MDV IV ONE (08:00)
[2022-02-15] MEDS ORDERED: heparin 1,000 units/ml 10ml inj IV ONE (08:00)
--- NOTE | 2022-02-15 09:18 | NUR ---
Pt asking for deep suctioning. RT Stephanie refuses to. Dr. Cuellar aware. Patient has Oropharynx suction at beside and able to use. Will continue monitor.
--- NOTE | 2022-02-15 11:14 | NUR ---
RT in to see patient and NT suction. Rosio cook boat at bedside.
[2022-02-15] MEDS: heparin, porcine 5000 units/ml vial SQ SCH (16:35)
[2022-02-15] MEDS ORDERED: ondansetron 4mg rapidly disintigrating tab PO PRN (17:40)
--- NOTE | 2022-02-15 18:29 | NUR ---
Problems reprioritized. Patient report given, questions answered & plan of care reviewed with RAMOS odell.
--- NOTE | 2022-02-15 18:46 | NUR ---
Patient in room PCU 3015. I have received report from RAMOS Freeman and had the opportunity to ask questions and assume patient care.
[2022-02-15] MEDS: bisacodyl 5mg tablet.DR PO PRN (19:47)
[2022-02-15] MEDS: HYDROcodone/acetaminophen 5mg/325mg tablet PO PRN (21:27)
[2022-02-16] VITALS (8 sets, daily range): BP systolic 112–134; BP diastolic 56–77
[2022-02-16] MEDS: heparin, porcine 5000 units/ml vial SQ SCH ×3 (00:25→15:34)
[2022-02-16] MEDS: VANCOMYCIN LEVEL IV SCH ×2 (03:00→03:59)
[2022-02-16] MEDS: acetaminophen 325mg tablet PO PRN (03:55)
--- NOTE | 2022-02-16 06:10 | NUR ---
Patient in room PCU 3015. I have received report from RAMOS Dunham and had the opportunity to ask questions and assume patient care.
[2022-02-16 06:49] LABS: BASOPHILS # (AUTO) 0.1 X10'3 (0-0.2); BASOPHILS % (AUTO) 1.2 % (0-1); EOSINOPHILS # (AUTO) 0.3 X10'3 (0-0.9); EOSINOPHILS % (AUTO) 3.6 % (0-6); HEMOGLOBIN 9.3 g/dl (14.0-17.9); LYMPHOCYTES # (AUTO) 0.9 X10'3 (1.1-4.8); LYMPHOCYTES % (AUTO) 11.2 % (21-51); MEAN CORPUSCULAR HEMOGLOBIN 34.2 PG (27.0-31.0); MEAN CORPUSCULAR HGB CONC 33.1 g/dL (33.0-36.5); MEAN CORPUSCULAR VOLUME 103.2 FL (78-98); MEAN PLATELET VOLUME 7.3 FL (7.4-10.4); MONOCYTES # (AUTO) 0.8 X10'3 (0-0.9); MONOCYTES % (AUTO) 9.2 % (2-12); NEUTROPHILS # (AUTO) 6.2 X10'3 (1.8-7.7); NEUTROPHILS % (AUTO) 74.8 % (42-75); PLATELET COUNT 159 X10'3 (140-440); RED BLOOD COUNT 2.72 X10'6 (4.70-6.10); RED CELL DISTRIBUTION WIDTH 15.7 % (11.5-14.5); WHITE BLOOD COUNT 8.3 X10'3 (4.5-11.0)
--- NOTE | 2022-02-16 07:12 | NUR ---
Problems reprioritized. Patient report given, questions answered & plan of care reviewed with RAMOS Huff.
[2022-02-16 07:33] LABS: ALBUMIN 2.9 G/DL (3.4-5.0); ANION GAP 12 (8-16); BLOOD UREA NITROGEN 27 MG/DL (7-18); BUN/CREATININE RATIO 4.3 (5.4-32.0); CALCIUM 8.8 MG/DL (8.5-10.1); CHLORIDE 102 MMOL/L (99-107); CREATININE 6.25 MG/DL (0.60-1.10); GLUCOSE 86 MG/DL (70-104); POTASSIUM 4.2 MMOL/L (3.5-5.1); SODIUM 141 MMOL/L (135-145); TOTAL CARBON DIOXIDE 27.5 MMOL/L (24-32); eGFR 9 ML/MIN
[2022-02-16] MEDS: ipratropium/albuterol 3ml nebule IH SCH ×4 (08:13→20:31)
--- NOTE | 2022-02-16 09:40 | NUR ---
Initial: Pt admit to r/o CVA s/p syncopal episode. 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 Pt s/p BSS with ST recs mechanical soft grind all food with thin liquids. Overall pt eating well with average 88% PO intake, meeting 89% estimated energy needs though only 56% estimated protein needs. Recommend Ensure High Protein BID to further assist with meeting estimated nutrient needs. ONS to be sent pending physician approval in EMR. LBM 02/13, documented as a smear. Pt receiving routine bowel care and received first admin of PRN Dulcolax 02/15. Will continue to follow and monitor need for further nutrition intervention. Recommendations: 1) Continue MM5 renal diet with thin liquids, 1.0 L fluid restriction per physician 2) Ensure High Protein BIDBD, pending physician approval in EMR 3) Routine bowel care; utilize PRN bowel care 4) Scaled weight this admit; subsequent scaled weights with dialysis Addendum: 02/16/22 at [address] Amended: Links added.
[2022-02-16] MEDS: lactobacillus rhamnosus 10,000 MMU CELLS/CAPSULE PO SCH (09:57)
[2022-02-16] MEDS: docusate sod 100mg capsule PO SCH ×2 (09:57→20:37)
[2022-02-16] MEDS: aztreonam inj. 1,000 MG in normal saline 100ml IV soln 100 ML IV SCH (09:57)
[2022-02-16] MEDS: pantoprazole 40mg Tablet.DR PO SCH (09:57)
[2022-02-16] MEDS: amiodarone 200mg tablet PO SCH (09:57)
[2022-02-16] MEDS: aspirin 325mg tablet, delayed-release (Ecotrin) PO SCH (09:57)
[2022-02-16] MEDS: HYDROcodone/acetaminophen 5mg/325mg tablet PO PRN (09:59)
[2022-02-16] MEDS ORDERED: vancomycin/NS 1 GM ADD-VANTAGE 250 ML X 1 DOSE IV ONE (11:00)
[2022-02-16] MEDS: levoFLOXACIN-Levaquin 250mg/D5 50 ML IV SCH (11:08)
[2022-02-16] MEDS: lactose-reduced food (Ensure High Protein) 237ml bottle PO SCH (17:30)
--- NOTE | 2022-02-16 18:10 | NUR ---
Problems reprioritized. Patient report given, questions answered & plan of care reviewed with RAMOS Dunham.
--- NOTE | 2022-02-16 18:30 | NUR ---
Patient in room PCU 3015. I have received report from RAMOS Huff and had the opportunity to ask questions and assume patient care.
--- NOTE | 2022-02-16 20:58 | NUR ---
unable to do orthostatic BP due to pt up with PT only
[2022-02-17] MEDS: heparin, porcine 5000 units/ml vial SQ SCH ×4 (00:46→23:44)
[2022-02-17 02:00] VITALS: BP 129/73
[2022-02-17] MEDS: VANCOMYCIN LEVEL IV SCH (03:00)
[2022-02-17] MEDS: acetaminophen 325mg tablet PO PRN ×2 (04:26→18:31)
--- NOTE | 2022-02-17 06:19 | NUR ---
Problems reprioritized. Patient report given, questions answered & plan of care reviewed with RAMOS Huff.
--- NOTE | 2022-02-17 06:20 | NUR ---
Patient in room PCU 3015. I have received report from RAMOS Dunham and had the opportunity to ask questions and assume patient care.
[2022-02-17 06:43] LABS: BASOPHILS # (AUTO) 0.1 X10'3 (0-0.2); BASOPHILS % (AUTO) 0.7 % (0-1); EOSINOPHILS # (AUTO) 0.5 X10'3 (0-0.9); HEMATOCRIT 29.3 % (42.0-52.0); HEMOGLOBIN 9.6 g/dl (14.0-17.9); LYMPHOCYTES # (AUTO) 0.9 X10'3 (1.1-4.8); LYMPHOCYTES % (AUTO) 9.4 % (21-51); MEAN CORPUSCULAR HEMOGLOBIN 33.9 PG (27.0-31.0); MEAN CORPUSCULAR HGB CONC 32.8 g/dL (33.0-36.5); MEAN CORPUSCULAR VOLUME 103.3 FL (78-98); MEAN PLATELET VOLUME 7.4 FL (7.4-10.4); MONOCYTES % (AUTO) 10.7 % (2-12); NEUTROPHILS % (AUTO) 74.2 % (42-75); PLATELET COUNT 193 X10'3 (140-440); RED BLOOD COUNT 2.83 X10'6 (4.70-6.10); RED CELL DISTRIBUTION WIDTH 15.5 % (11.5-14.5); WHITE BLOOD COUNT 9.4 X10'3 (4.5-11.0)
[2022-02-17 06:53] LABS: ALBUMIN 2.7 G/DL (3.4-5.0); ANION GAP 12 (8-16); BLOOD UREA NITROGEN 42 MG/DL (7-18); BUN/CREATININE RATIO 4.9 (5.4-32.0); CALCIUM 8.9 MG/DL (8.5-10.1); CHLORIDE 102 MMOL/L (99-107); CREATININE 8.64 MG/DL (0.60-1.10); GLUCOSE 92 MG/DL (70-104); POTASSIUM 4.6 MMOL/L (3.5-5.1); SODIUM 141 MMOL/L (135-145); TOTAL CARBON DIOXIDE 27.1 MMOL/L (24-32); VANCOMYCIN,RANDOM 21.7 UG/ML; eGFR 6 ML/MIN
[2022-02-17] MEDS: ipratropium/albuterol 3ml nebule IH SCH ×4 (07:29→19:50)
[2022-02-17] MEDS: lactose-reduced food (Ensure High Protein) 237ml bottle PO SCH ×2 (07:30→17:30)
[2022-02-17] MEDS ORDERED: heparin 1,000 units/ml 10ml inj IV ONE ×2 (09:40→12:10)
[2022-02-17] MEDS ORDERED: albumin (human) 25% 100ml IV 100 ML IV PRN ×2 (09:40→12:10)
[2022-02-17] MEDS ORDERED: heparin 1,000unit/ml 10ml vial 10 ML IV ONE ×2 (09:40→12:10)
[2022-02-17] MEDS ORDERED: EPOETIN ALFA-EPBX 20,000 UNIT/ML 1 ML MDV IV ONE ×2 (09:40→12:10)
[2022-02-17] MEDS ORDERED: heparin 1,000 units/ml 10ml inj HE ONE ×4 (09:45→12:15)
[2022-02-17 10:00] VITALS: BP 118/78
[2022-02-17] MEDS ORDERED: bisacodyl 10mg suppository rectal RC PRN (10:50)
[2022-02-17] MEDS: aztreonam inj. 1,000 MG in normal saline 100ml IV soln 100 ML IV SCH (11:01)
[2022-02-17] MEDS: pantoprazole 40mg Tablet.DR PO SCH (11:01)
[2022-02-17] MEDS: lactobacillus rhamnosus 10,000 MMU CELLS/CAPSULE PO SCH (11:01)
[2022-02-17] MEDS: docusate sod 100mg capsule PO SCH ×2 (11:01→20:50)
[2022-02-17] MEDS: amiodarone 200mg tablet PO SCH (11:01)
[2022-02-17] MEDS: aspirin 325mg tablet, delayed-release (Ecotrin) PO SCH (11:02)
[2022-02-17 14:00] VITALS: BP 95/63
[2022-02-17] MEDS ORDERED: albumin (human) 25% 100 ML IV solution IV ONE ×2 (15:25)
[2022-02-17 18:00] VITALS: BP 119/71
--- NOTE | 2022-02-17 18:50 | NUR ---
Problems reprioritized. Patient report given, questions answered & plan of care reviewed with RAMOS Dunham.
--- NOTE | 2022-02-17 19:05 | NUR ---
Patient in room PCU 3015. I have received report from RAMOS Huff and had the opportunity to ask questions and assume patient care.
[2022-02-17] MEDS: bisacodyl 5mg tablet.DR PO PRN (20:50)
[2022-02-17 22:00] VITALS: BP 119/55
[2022-02-18 02:00] VITALS: BP 124/51
[2022-02-18] MEDS: acetaminophen 325mg tablet PO PRN (02:00)
[2022-02-18] MEDS: VANCOMYCIN LEVEL IV SCH (03:00)
[2022-02-18 06:00] VITALS: BP 111/65
--- NOTE | 2022-02-18 06:30 | NUR ---
Patient in room PCU 3015. I have received report from RAMOS Dunham and had the opportunity to ask questions and assume patient care.
--- NOTE | 2022-02-18 06:52 | NUR ---
Problems reprioritized. Patient report given, questions answered & plan of care reviewed with RAMOS Huff.
[2022-02-18] MEDS: lactose-reduced food (Ensure High Protein) 237ml bottle PO SCH ×2 (07:30→17:30)
[2022-02-18 08:10] LABS: ALBUMIN 3.5 G/DL (3.4-5.0); ANION GAP 12 (8-16); BLOOD UREA NITROGEN 27 MG/DL (7-18); BUN/CREATININE RATIO 4.9 (5.4-32.0); CALCIUM 9.2 MG/DL (8.5-10.1); CHLORIDE 102 MMOL/L (99-107); CREATININE 5.48 MG/DL (0.60-1.10); GLUCOSE 91 MG/DL (70-104); POTASSIUM 4.3 MMOL/L (3.5-5.1); SODIUM 141 MMOL/L (135-145); TOTAL CARBON DIOXIDE 27.1 MMOL/L (24-32); eGFR 10 ML/MIN
[2022-02-18 08:33] LABS: BASOPHILS # (AUTO) 0.1 X10'3 (0-0.2); BASOPHILS % (AUTO) 0.7 % (0-1); EOSINOPHILS # (AUTO) 0.3 X10'3 (0-0.9); EOSINOPHILS % (AUTO) 3.4 % (0-6); HEMATOCRIT 27.7 % (42.0-52.0); HEMOGLOBIN 9.2 g/dl (14.0-17.9); LYMPHOCYTES # (AUTO) 0.8 X10'3 (1.1-4.8); LYMPHOCYTES % (AUTO) 9.7 % (21-51); MEAN CORPUSCULAR HEMOGLOBIN 34.3 PG (27.0-31.0); MEAN CORPUSCULAR HGB CONC 33.1 g/dL (33.0-36.5); MEAN CORPUSCULAR VOLUME 103.7 FL (78-98); MEAN PLATELET VOLUME 7.3 FL (7.4-10.4); MONOCYTES % (AUTO) 11.6 % (2-12); NEUTROPHILS # (AUTO) 6.3 X10'3 (1.8-7.7); NEUTROPHILS % (AUTO) 74.6 % (42-75); PLATELET COUNT 185 X10'3 (140-440); RED BLOOD COUNT 2.67 X10'6 (4.70-6.10); RED CELL DISTRIBUTION WIDTH 15.5 % (11.5-14.5); WHITE BLOOD COUNT 8.5 X10'3 (4.5-11.0)
[2022-02-18] MEDS: aspirin 325mg tablet, delayed-release (Ecotrin) PO SCH (09:17)
[2022-02-18] MEDS: pantoprazole 40mg Tablet.DR PO SCH (09:17)
[2022-02-18] MEDS: docusate sod 100mg capsule PO SCH ×2 (09:17→19:45)
[2022-02-18] MEDS: lactobacillus rhamnosus 10,000 MMU CELLS/CAPSULE PO SCH (09:17)
[2022-02-18] MEDS: aztreonam inj. 1,000 MG in normal saline 100ml IV soln 100 ML IV SCH (09:17)
[2022-02-18] MEDS: amiodarone 200mg tablet PO SCH (09:17)
[2022-02-18] MEDS: heparin, porcine 5000 units/ml vial SQ SCH ×2 (09:20→16:29)
[2022-02-18] MEDS: ipratropium/albuterol 3ml nebule IH SCH ×4 (09:21→20:27)
[2022-02-18 10:00] VITALS: BP 123/54
[2022-02-18] MEDS: levoFLOXACIN-Levaquin 250mg/D5 50 ML IV SCH (11:05)
[2022-02-18 14:00] VITALS: BP 118/61
[2022-02-18 18:00] VITALS: BP 97/64
--- NOTE | 2022-02-18 18:38 | NUR ---
Patient in room PCU 9364V. I have received report from RAMOS Huff and had the opportunity to ask questions and assume patient care.
--- NOTE | 2022-02-18 18:45 | NUR ---
Problems reprioritized. Patient report given, questions answered & plan of care reviewed with RAMOS Streeter.
--- NOTE | 2022-02-18 22:00 | NUR ---
Patient refused obtainment of vital signs at this time.
[2022-02-19] MEDS: acetaminophen 325mg tablet PO PRN ×2 (01:48→21:35)
--- NOTE | 2022-02-19 02:00 | NUR ---
Patient refused obtainment of vital signs at this time
[2022-02-19] MEDS: VANCOMYCIN LEVEL IV SCH (03:00)
[2022-02-19 06:00] VITALS: BP 122/62
--- NOTE | 2022-02-19 06:11 | NUR ---
Problems reprioritized. Patient report given, questions answered & plan of care reviewed with RAMOS Sharma.
[2022-02-19] MEDS: ipratropium/albuterol 3ml nebule IH SCH ×4 (06:54→19:54)
[2022-02-19] MEDS: lactose-reduced food (Ensure High Protein) 237ml bottle PO SCH ×2 (07:30→17:48)
[2022-02-19] MEDS: pantoprazole 40mg Tablet.DR PO SCH (08:35)
[2022-02-19] MEDS: heparin, porcine 5000 units/ml vial SQ SCH ×4 (08:35→23:18)
[2022-02-19] MEDS: amiodarone 200mg tablet PO SCH (08:35)
[2022-02-19] MEDS: lactobacillus rhamnosus 10,000 MMU CELLS/CAPSULE PO SCH (08:35)
[2022-02-19] MEDS: aspirin 325mg tablet, delayed-release (Ecotrin) PO SCH (08:35)
[2022-02-19] MEDS: docusate sod 100mg capsule PO SCH ×2 (08:35→20:00)
[2022-02-19] MEDS: aztreonam inj. 1,000 MG in normal saline 100ml IV soln 100 ML IV SCH (09:20)
[2022-02-19 11:00] VITALS: BP 133/55
[2022-02-19 15:00] VITALS: BP 101/43
[2022-02-19 18:00] VITALS: BP 104/56
[2022-02-19] MEDS: furosemide 40mg tablet PO SCH (20:19)
[2022-02-19 22:00] VITALS: BP 100/43
[2022-02-20 02:00] VITALS: BP 109/53
[2022-02-20] MEDS: VANCOMYCIN LEVEL IV SCH (03:00)
--- NOTE | 2022-02-20 06:15 | NUR ---
Patient in room PCU 3015. I have received report from Syl BEASLEY and had the opportunity to ask questions and assume patient care.
--- NOTE | 2022-02-20 06:44 | NUR ---
Problems reprioritized. Patient report given, questions answered & plan of care reviewed with RAMOS Dsouza.
[2022-02-20 07:00] VITALS: BP 132/73
[2022-02-20] MEDS ORDERED: heparin 1,000 units/ml 10ml inj IV ONE (07:05)
[2022-02-20] MEDS ORDERED: heparin 1,000unit/ml 10ml vial 10 ML IV ONE (07:05)
[2022-02-20] MEDS ORDERED: EPOETIN ALFA-EPBX 20,000 UNIT/ML 1 ML MDV IV ONE (07:05)
[2022-02-20] MEDS ORDERED: albumin (human) 25% 100ml IV 100 ML IV PRN (07:05)
[2022-02-20] MEDS ORDERED: heparin 1,000 units/ml 10ml inj HE ONE ×2 (07:10)
[2022-02-20 07:22] LABS: ALBUMIN 3.1 G/DL (3.4-5.0); ANION GAP 21 (8-16); BLOOD UREA NITROGEN 50 MG/DL (7-18); BUN/CREATININE RATIO 5.3 (5.4-32.0); CALCIUM 9.5 MG/DL (8.5-10.1); CHLORIDE 102 MMOL/L (99-107); CREATININE 9.36 MG/DL (0.60-1.10); GLUCOSE 92 MG/DL (70-104); POTASSIUM 4.6 MMOL/L (3.5-5.1); SODIUM 146 MMOL/L (135-145); TOTAL CARBON DIOXIDE 23.4 MMOL/L (24-32); VANCOMYCIN,RANDOM 15.2 UG/ML; eGFR 5 ML/MIN
[2022-02-20] MEDS: lactose-reduced food (Ensure High Protein) 237ml bottle PO SCH ×2 (07:30→18:25)
[2022-02-20] MEDS: ipratropium/albuterol 3ml nebule IH SCH ×4 (07:54→20:13)
--- NOTE | 2022-02-20 08:41 | NUR ---
Reassessment; Pt continues on Renal/MM5 diet w/ 1L fluid restriction, avg intake 72% x9 meals and ~50% x 4 ONS which meets approximately 81% of est energy needs and 59% of est protein needs. Consider changing ONS to Ensure Enlive or Nepro if PO does not improve. Pt continues on HD, last treatment 02/17 w/ 1.5L out per documentation. LBM 02/18 receiving routine colace. Will continue to monitor. Recommendations: 1) Continue MM5 renal diet with thin liquids, 1.0 L fluid restriction per physician 2) Ensure High Protein BIDBD, consider changing to Nepro or Ensure Enlive 3) Routine bowel care; utilize PRN bowel care 4) Scaled weight this admit; subsequent scaled weights with dialysis Addendum: 02/20/22 at [address] Amended: Links added.
[2022-02-20] MEDS: lactobacillus rhamnosus 10,000 MMU CELLS/CAPSULE PO SCH (09:09)
[2022-02-20] MEDS: docusate sod 100mg capsule PO SCH ×2 (09:09→20:00)
[2022-02-20] MEDS: amiodarone 200mg tablet PO SCH (09:09)
[2022-02-20] MEDS: aspirin 325mg tablet, delayed-release (Ecotrin) PO SCH (09:09)
[2022-02-20] MEDS: furosemide 40mg tablet PO SCH ×2 (09:09→20:49)
[2022-02-20] MEDS: pantoprazole 40mg Tablet.DR PO SCH (09:09)
[2022-02-20] MEDS: heparin, porcine 5000 units/ml vial SQ SCH ×3 (09:09→23:19)
[2022-02-20 11:00] VITALS: BP 110/49
[2022-02-20] MEDS: levoFLOXACIN 250mg tablet PO SCH (11:58)
[2022-02-20 12:39] LABS: HBSAG SCREEN Negative (Negative)
[2022-02-20 15:00] VITALS: BP 80/47
[2022-02-20] MEDS: acetaminophen 325mg tablet PO PRN (15:32)
[2022-02-20 18:00] VITALS: BP 92/50
--- NOTE | 2022-02-20 18:05 | NUR ---
Patient in room PCU 3013F. I have received report from RAMOS Dsouza and had the opportunity to ask questions and assume patient care.
[2022-02-20 22:00] VITALS: BP 97/55
[2022-02-20] MEDS: HYDROcodone/acetaminophen 5mg/325mg tablet PO PRN (22:18)
[2022-02-21 02:00] VITALS: BP 113/66
[2022-02-21 06:00] VITALS: BP 130/58
--- NOTE | 2022-02-21 06:34 | NUR ---
Problems reprioritized. Patient report given, questions answered & plan of care reviewed with RAMOS Nava.
[2022-02-21] MEDS: aspirin 325mg tablet, delayed-release (Ecotrin) PO SCH (07:26)
[2022-02-21] MEDS: lactobacillus rhamnosus 10,000 MMU CELLS/CAPSULE PO SCH (07:26)
[2022-02-21] MEDS: heparin, porcine 5000 units/ml vial SQ SCH (07:27)
[2022-02-21] MEDS: pantoprazole 40mg Tablet.DR PO SCH (07:27)
[2022-02-21] MEDS: furosemide 40mg tablet PO SCH (07:27)
[2022-02-21] MEDS: amiodarone 200mg tablet PO SCH (07:27)
[2022-02-21] MEDS: HYDROcodone/acetaminophen 5mg/325mg tablet PO PRN (07:27)
[2022-02-21] MEDS: docusate sod 100mg capsule PO SCH (07:28)
[2022-02-21] MEDS: lactose-reduced food (Ensure High Protein) 237ml bottle PO SCH (07:30)
[2022-02-21 08:00] LABS: ALBUMIN 3.7 G/DL (3.4-5.0); ANION GAP 19 (8-16); BLOOD UREA NITROGEN 37 MG/DL (7-18); BUN/CREATININE RATIO 5.7 (5.4-32.0); CALCIUM 10.2 MG/DL (8.5-10.1); CHLORIDE 99 MMOL/L (99-107); CREATININE 6.49 MG/DL (0.60-1.10); GLUCOSE 90 MG/DL (70-104); POTASSIUM 4.1 MMOL/L (3.5-5.1); SODIUM 144 MMOL/L (135-145); TOTAL CARBON DIOXIDE 26.1 MMOL/L (24-32); eGFR 8 ML/MIN
[2022-02-21] MEDS: ipratropium/albuterol 3ml nebule IH SCH ×2 (08:00→11:43)
[2022-02-21] MEDS: levoFLOXACIN 250mg tablet PO SCH (10:59)
[2022-02-21 11:00] VITALS: BP 111/47
--- NOTE | 2022-02-21 11:30 | NUR ---
Report given to RN at [facility]. All questions answered to RN's satisfaction. [facility] transport due to arrive to unit at 1300. Pt will leave unit with PIV and HD cath in place.
== END 2022-02-21 13:47 | DRG 871 ==
LOC: ER 10:13 → ED HOLD 14:35 → UNDOADMIN 14:35 → ED HOLD 20:01 → EDBEDREQ 20:37 → EDBEDREQSVC 20:37 → PCU 3S 02-13 01:19 → ED HOLD 02-13 01:19
PROVIDERS: ADMIT Internal Medicine; ATTEND Internal Medicine
PROC: 5A09357 Assistance with Respiratory Ventilation, Less than 24 Consecutive Hours, Continuous Positive Airway Pressure (ICD-10-PCS; principal; 2022-02-12)
PROC: B3251ZZ Computerized Tomography (CT Scan) of Bilateral Common Carotid Arteries using Low Osmolar Contrast (ICD-10-PCS; 2022-02-12)
PROC: B32G1ZZ Computerized Tomography (CT Scan) of Bilateral Vertebral Arteries using Low Osmolar Contrast (ICD-10-PCS; 2022-02-12)
PROC: B32R1ZZ Computerized Tomography (CT Scan) of Intracranial Arteries using Low Osmolar Contrast (ICD-10-PCS; 2022-02-12)
PROC: B3281ZZ Computerized Tomography (CT Scan) of Bilateral Internal Carotid Arteries using Low Osmolar Contrast (ICD-10-PCS; 2022-02-12)
PROC: 5A0935A Assistance with Respiratory Ventilation, Less than 24 Consecutive Hours, High Flow/Velocity Cannula (ICD-10-PCS; 2022-02-13)
PROC: 5A1D70Z Performance of Urinary Filtration, Intermittent, Less than 6 Hours Per Day (ICD-10-PCS; 2022-02-13)
PROC: 5A09357 Assistance with Respiratory Ventilation, Less than 24 Consecutive Hours, Continuous Positive Airway Pressure (ICD-10-PCS; 2022-02-14)
PROC: 5A0935A Assistance with Respiratory Ventilation, Less than 24 Consecutive Hours, High Flow/Velocity Cannula (ICD-10-PCS; 2022-02-14)
PROC: 5A09357 Assistance with Respiratory Ventilation, Less than 24 Consecutive Hours, Continuous Positive Airway Pressure (ICD-10-PCS; 2022-02-15)
PROC: 5A0935A Assistance with Respiratory Ventilation, Less than 24 Consecutive Hours, High Flow/Velocity Cannula (ICD-10-PCS; 2022-02-15)
PROC: 5A1D70Z Performance of Urinary Filtration, Intermittent, Less than 6 Hours Per Day (ICD-10-PCS; 2022-02-15)
PROC: 5A0935A Assistance with Respiratory Ventilation, Less than 24 Consecutive Hours, High Flow/Velocity Cannula (ICD-10-PCS; 2022-02-16)
PROC: 5A09357 Assistance with Respiratory Ventilation, Less than 24 Consecutive Hours, Continuous Positive Airway Pressure (ICD-10-PCS; 2022-02-17)
PROC: 5A1D70Z Performance of Urinary Filtration, Intermittent, Less than 6 Hours Per Day (ICD-10-PCS; 2022-02-17)
PROC: 5A09357 Assistance with Respiratory Ventilation, Less than 24 Consecutive Hours, Continuous Positive Airway Pressure (ICD-10-PCS; 2022-02-18)
PROC: 5A09357 Assistance with Respiratory Ventilation, Less than 24 Consecutive Hours, Continuous Positive Airway Pressure (ICD-10-PCS; 2022-02-19)
PROC: 5A1D70Z Performance of Urinary Filtration, Intermittent, Less than 6 Hours Per Day (ICD-10-PCS; 2022-02-20)
PROC: 5A09357 Assistance with Respiratory Ventilation, Less than 24 Consecutive Hours, Continuous Positive Airway Pressure (ICD-10-PCS; 2022-02-21)
DX: A41.9 Sepsis, unspecified organism (principal); J18.9 Pneumonia, unspecified organism; N18.6 End stage renal disease; J96.21 Acute and chronic respiratory failure with hypoxia; I12.0 Hypertensive chronic kidney disease with stage 5 chronic kidney disease or end stage renal disease; J44.0 Chronic obstructive pulmonary disease with (acute) lower respiratory infection; G89.29 Other chronic pain; M19.90 Unspecified osteoarthritis, unspecified site; M54.9 Dorsalgia, unspecified; W18.39XA Other fall on same level, initial encounter; Z20.822 Contact with and (suspected) exposure to COVID-19; E86.0 Dehydration; I48.0 Paroxysmal atrial fibrillation; Z99.2 Dependence on renal dialysis; E78.00 Pure hypercholesterolemia, unspecified; Z85.72 Personal history of non-Hodgkin lymphomas; Z92.21 Personal history of antineoplastic chemotherapy; Z92.3 Personal history of irradiation; Z79.899 Other long term (current) drug therapy; Z88.0 Allergy status to penicillin; Y93.89 Activity, other specified; Y92.098 Other place in other non-institutional residence as the place of occurrence of the external cause; Y99.8 Other external cause status; Z87.891 Personal history of nicotine dependence
CPT/HCPCS: 36415; 36600; 70450; 70496; 70498; 71045; 80048; 80053; 80061; 80202; 82803; 82948; 83605; 85018; 85025; 85610; 85651; 85730; 87040; 87340; 87635; 92508; 92616; 93005; 93306; 94640; 94660; 94664; 94668; 94760; 97110; 97116; 97163; 97530; 99285; A4615; A4620; A4624; A6213; A6402; G0257; G0378; J1644; J1956; J3370; J3490; J7030; J7050; P9047; Q4081; Q9967